=== PATIENT | male | born 1965 | race Caucasian/White ===

== ENCOUNTER 2021-03-24 03:14 | Emergency (ER) | payer OTHER ==
[~2021-03-24] VITALS: Ht 167.6 cm; Wt 74.8 kg
[~2021-03-24 03:14] MED LIST: VISTARIL25 MG PO; ZOLOFT25 MG PO
[2021-03-24] MEDS ORDERED: SEROQUEL300 MG (03:27)
[2021-03-24] MEDS ORDERED: ATIVAN0.5 M1 (03:27)
[2021-03-24] MEDS ORDERED: DEPAKOTE ER250 MG (03:27)
== END 2021-03-25 16:42 | disposition home or self-care (01) ==
LOC: ER 03:14
DX: R00.2 Palpitations (principal); R07.9 Chest pain, unspecified; F19.20 Other psychoactive substance dependence, uncomplicated; F41.9 Anxiety disorder, unspecified

== ENCOUNTER → 2024-07-18 | Emergency (ER) | payer OTHER ==
[~2024-07-18] VITALS: Ht 167.6 cm; Wt 68.0 kg
[~2024-07-18] MED LIST changes: +ATIVAN0.5 M1; +DEPAKOTE ER250 MG; +ONDANSETRON HCL 2 MG/ML VIAL IV ONE; +SEROQUEL300 MG
[2024-07-18 23:53] LABS: HEMATOCRIT 37.3 % (39.0-48.0); MEAN CELL VOLUME 93.4 fL (80.0-100.00); MEAN CORPUSCULAR HGB CONC 33.8 g/dl (32.0-36.0); PLATELET COUNT 340 K/uL (150-450); RED CELL DISTRIBUTION WIDTH 14.6 % (11.5-14.5)
[2024-07-18 23:54] LABS: HEMOGLOBIN 12.6 g/dL (13-16.00); MEAN CORPUSCULAR HEMOGLOBIN 31.5 pg (27.00-32.0)
[2024-07-19 00:19] LABS: ALBUMIN 3.7 gm/dL (3.4-5.0); BILIRUBIN TOTAL 0.27 mg/dL (0.3-1.2); CALCIUM 9.3 mg/dL (8.5-10.1); CREATININE SERUM 1.1 mg/dL (0.70-1.30); GFR 68.75; GLOBULINA 4.8 G/DL (2.4-3.5); POTASSIUM 4.55 mEq/L (3.5-5.1); TOTAL PROTEIN 8.5 gm/dL (6.4-8.2)
[2024-07-19 01:52] LABS: PH,URINE 5.5 (5.0-8.0); URINE APPEARANCE Clear; URINE BILIRRUBIN Negative (NEGATIVE); URINE BLOOD Negative; URINE COLOR Dark Yellow; URINE GLUCOSE Negative (NEGATIVE); URINE KETONE Trace (NEGATIVE); URINE LEUKOCYTE Negative; URINE NITRATE Negative; URINE PROTEIN 30 (NEGATIVE)
[2024-07-19 01:54] LABS: URINE BACTERIA 22.6 uL (0.0-1933); URINE CAST 5.19 uL (0.0-1.40); URINE EPITHELIAL CELLS 9.5 uL (0.0-38.8); URINE RBC 9.9 uL (0.0-20.8); URINE WBC 3.5 uL (0.0-23.2)
[2024-07-19 02:16] LABS: URINE CRYSTALS FEW /HPF; URINE MUCUS MODERATE
[2024-07-19 02:42] LABS: COCAINE POSITIVE (NEGATIVE); METHADONE NEGATIVE (NEGATIVE); OPIATES NEGATIVE (NEGATIVE); THC ( Cannabinoids) NEGATIVE (NEGATIVE)
== END | disposition left against medical advice (07) ==
LOC: ER 21:53
PROVIDERS: General Practice
DX: F19.20 Other psychoactive substance dependence, uncomplicated (principal); R45.851 Suicidal ideations; Z88.8 Allergy status to other drugs, medicaments and biological substances

== ENCOUNTER → 2025-07-17 | Emergency (ER) | payer OTHER ==
[~2025-07-17] VITALS: Ht 167.6 cm; Wt 70.3 kg
[~2025-07-17] MED LIST changes: +FAMOTIDINE/PF 20 MG/2 ML VIAL ONE; +FAMOtidine 10 MG/ML (4ML VIAL) IV ONE; +KETOROLAC TROMETHAMINE 30 MG VIAL IV ONE; +KETOROLAC TROMETHAMINE 30 MG VIAL ONE; -ONDANSETRON HCL 2 MG/ML VIAL IV ONE; +ONDANSETRON HCL 2 MG/ML VIAL ONE; +POTASSIUM BICARBONATE/CIT AC 25 MEQ TABLET.EFF PO ONE; +POTASSIUM CHLORIDE/D5-0.9%NACL 20 MEQ/1,000 ML PIGGYBAG IV ONE; +POTASSIUM CHLORIDE/D5W 20 MEQ/1,000 ML PIGGYBAG IV STA
[2025-07-17 14:02] LABS: BASO % 0.5 % (0.1-1.2); EOS # 0.49 (0.04-0.54); EOS % 6.3 % (0.7-7.0); LYMPH # 1.79 (1.18-3.74); LYMPH % 23.0 % (19.3-53.1); MEAN PLATELET VOLUME 10.90 fl (9.4-12.4); MONO # 0.58 (0.24-0.82); MONO % 7.5 % (4.7-12.5); NEUT # 4.86 (1.56-6.13); NEUT % 62.4 % (34.0-71.1); RED CELL DISTRIBUTION WIDTH 13.6 % (11.6-14.4)
[2025-07-17 14:30] LABS: ALT/SGPT 31.0 U/L (12-78); AST/SGOT 20.0 U/L (15-37); BILIRUBIN TOTAL 0.33 mg/dL (0.3-1.2); BUN CREA RATIO 8.0 (7.0-25.0); CREATININE SERUM 0.87 mg/dL (0.70-1.30); GFR 89.81; GLOBULINA 4.1 G/DL (2.4-3.5); GLUCOSE FASTING 179.0 mg/dL (65-100); OSMOLALITY SERUM 280.0 MOSM/KG (275-295)
[2025-07-17 14:41] LABS: INR 1.04
[2025-07-17 14:54] LABS: COVID-19 AG NEGATIVE (NEGATIVE)
== END | disposition left against medical advice (07) ==
LOC: ER 03:52
PROVIDERS: Physician Assistant Medical
DX: E87.6 Hypokalemia (principal); F41.9 Anxiety disorder, unspecified; F32.A Depression, unspecified; F14.10 Cocaine abuse, uncomplicated; Z59.89 Other problems related to housing and economic circumstances; Z20.822 Contact with and (suspected) exposure to COVID-19; Z88.8 Allergy status to other drugs, medicaments and biological substances